=== PATIENT | female | born 1990 ===

== ENCOUNTER 2022-06-06 13:19 | Emergency (ER) | payer OTHER ==
[2022-06-06 13:29] VITALS: PULSE 55; RESP 20
[2022-06-06 14:22] LABS: Anisocytosis Slight; Basophils # (A) 0.1 k/uL (0-0.2); Basophils % (A) 1 %; Eosinophils # (A) 0.3 k/uL (0-0.7); Eosinophils % (A) 4 %; HCT 35.9 % (34.0-46.0); HGB 11.4 gm/dL (11.4-16.0); Lymphocytes # (A) 1.9 k/uL (1.0-4.8); Lymphocytes % (A) 21 %; MCH 19.4 pg (25.0-35.0); MCHC 31.7 g/dL (31.0-37.0); MCV 61.1 fL (80.0-100.0); Mean Platelet Volume 6.6; Microcytosis Marked; Monocytes # (A) 0.5 k/uL (0-1.0); Monocytes % (A) 5 %; Neutrophils # (A) 6.1 k/uL (1.3-7.7); Neutrophils % (A) 68 %; Platelet Count 205 k/uL (150-450); RBC 5.88 m/uL (3.80-5.40); RDW 16.7 % (11.5-15.5); WBC 8.9 k/uL (3.8-10.6)
[2022-06-06 14:49] LABS: African American GFR (CKD) >90 (>60 ml/min/1.73 sqM); Anion Gap 8 mmol/L; Blood Urea Nitrogen 13 mg/dL (7-17); Calcium 9.1 mg/dL (8.4-10.2); Carbon Dioxide 26 mmol/L (22-30); Chloride 102 mmol/L (98-107); Glucose 129 mg/dL (74-99); Non-African American GFR(CKD) >90 (>60 ml/min/1.73 sqM); Potassium 3.9 mmol/L (3.5-5.1); Sodium 136 mmol/L (137-145)
--- NOTE | 2022-06-06 14:55 | ED ---
General Adult HPI - General Chief complaint: Vaginal Bleeding Stated complaint: vaginal bleeding - 8 weeks Time Seen by Provider: 06/06/22 13:54 Source: patient, RN notes reviewed Mode of arrival: ambulatory Limitations: no limitations - History of Present Illness Initial comments: 31-year-old female presents emergency Department with chief complaint of vaginal bleeding early . 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 Patient states she's been having some brown spotting states that there was one clot today when she went to the bathroom. She states she has some lower abdominal cramping. She had a normal urinalysis yesterday. Patient is concerned that she may be miscarrying. Patient denies any flank pain no fevers or chills no other associated complaints. - Related Data Allergies Allergy/AdvReac Type Severity Reaction Status Date / Time No Known Allergies Allergy Verified 06/06/22 13:29 Review of Systems ROS Statement: Those systems with pertinent positive or pertinent negative responses have been documented in the HPI. ROS Other: All systems not noted in ROS Statement are negative. Past Medical History Additional Past Medical History / Comment(s): Anemia History of Any Multi-Drug Resistant Organisms: None Reported Additional Past Surgical History / Comment(s): Gastric sleeve 2017 Smoking Status: Vaper Past Alcohol Use History: None Reported Past Drug Use History: None Reported General Exam Limitations: no limitations General appearance: alert, in no apparent distress Head exam: Present: atraumatic, normocephalic, normal inspection Neck exam: Present: normal inspection. Absent: tenderness, meningismus, lymphadenopathy Respiratory exam: Present: normal lung sounds bilaterally. Absent: respiratory distress, wheezes, rales, rhonchi, stridor Cardiovascular Exam: Present: regular rate, normal rhythm, normal heart sounds. Absent: systolic murmur, diastolic murmur, rubs, gallop, clicks GI/Abdominal exam: Present: soft, tenderness, normal bowel sounds. Absent: distended, guarding, rebound, rigid Skin exam: Present: warm, dry, intact, normal color. Absent: rash Course Vital Signs 06/06/22 06/06/22 13:26 15:18 Temperature 97.9 F 97.8 F Pulse Rate 55 L Respiratory 20 Rate Blood Pressure 114/71 111/69 O2 Sat by Pulse 96 100 Oximetry Medical Decision Making - Medical Decision Making Was pt. sent in by a medical professional or institution (KELLY Phillip, LIBRARY CUSTOMER SERVICE CLERK, urgent care, hospital, or [facility]...) When possible be specific @ -No Did you speak to anyone other than the patient for history (EMS, parent, family, police, friend...)? What history was obtained from this source @ -No Did you review nursing and triage notes (agree or disagree)? Why? @ -I reviewed and agree with nursing and triage notes Were old charts reviewed (outside hosp., previous admission, EMS record, old EKG, old radiological studies, urgent care reports/EKG's, [facility] records)? Report findings @ -No old charts were reviewed Differential Diagnosis (chest pain, altered mental status, abdominal pain women, abdominal pain men, vaginal bleeding, weakness, fever, dyspnea, syncope, headache, dizziness, GI bleed, back pain, seizure, CVA, palpatations, mental health, musculoskeletal)? @ -Vaginal bleeding in , subchorionic hemorrhage, threatened miscarriage EKG interpreted by me (3pts min.). @ -None X-rays interpreted by me (1pt min.). @ -None done CT interpreted by me (1pt min.). @ -None done U/S interpreted by me (1pt. min.). @ -Ultrasound showed ovarian cyst, subchorionic hemorrhage, single viable IUP 7 weeks 1 day. What testing was considered but not performed or refused? (CT, X-rays, U/S, labs)? Why? @ -None What meds were considered but not given or refused? Why? @ -None Did you discuss the management of the patient with other professionals (professionals i.e. KELLY Phillip, LIBRARY CUSTOMER SERVICE CLERK, lab, RT, psych nurse, licensed master social worker, endodontic assistant, teacher, contracting officer, case managers)? Give summary @ -No Was smoking cessation discussed for >3mins.? @ -No Was critical care preformed (if so, how long)? @ -No Were there social determinants of health that impacted care today? How? (Homelessness, low income, unemployed, alcoholism, drug addiction, transportation, low edu. Level, literacy, decrease access to med. care, [facility], rehab)? @ -No Was there de-escalation of care discussed even if they declined (Discuss DNR or withdrawal of care, Hospice)? DNR status @ -No What co-morbidities impacted this encounter? (DM, HTN, Smoking, COPD, CAD, Cancer, CVA, ARF, Chemo, Hep., AIDS, mental health diagnosis, sleep apnea, morbid obesity)? @ -None Was patient admitted / discharged? Hospital course, mention meds given and route, prescriptions, significant lab abnormalities, going to OR and other pertinent info. @ -Discharged patient has subchorionic hemorrhaging most likely causing bleeding. She has a single viable IUP patient is O+ blood type will be discharged in stable condition. Undiagnosed new problem with uncertain prognosis? @ -No Drug Therapy requiring intensive monitoring for toxicity (Heparin, Nitro, Insulin, Cardizem)? @ -No Were any procedures done? @ -No Diagnosis/symptom? @ -Subchorionic hemorrhage and Acute, or Chronic, or Acute on Chronic? @ -Acute Uncomplicated (without systemic symptoms) or Complicated (systemic symptoms)? @ -uncomplicated Side effects of treatment? @ -No Exacerbation, Progression, or Severe Exacerbation? @ -No Poses a threat to life or bodily function? How? (Chest pain, USA, ID, pneumonia, PE, COPD, DKA, ARF, appy, cholecystitis, CVA, Diverticulitis, Homicidal, Suicidal, threat to staff... and all critical care pts) @ -No - Lab Data Result diagrams: 06/06/22 14:15 06/06/22 14:15 Lab Results 06/06/22 06/06/22 06/06/22 Range/Units 14:10 14:15 14:15 WBC 8.9 (3.8-10.6) k/uL RBC 5.88 H (3.80-5.40) m/uL Hgb 11.4 (11.4-16.0) gm/dL Hct 35.9 (34.0-46.0) % MCV 61.1 L (80.0-100.0) fL MCH 19.4 L (25.0-35.0) pg MCHC 31.7 (31.0-37.0) g/dL RDW 16.7 H (11.5-15.5) % Plt Count 205 (150-450) k/uL MPV 6.6 Neutrophils % 68 % Lymphocytes % 21 % Monocytes % 5 % Eosinophils % 4 % Basophils % 1 % Neutrophils # 6.1 (1.3-7.7) k/uL Lymphocytes # 1.9 (1.0-4.8) k/uL Monocytes # 0.5 (0-1.0) k/uL Eosinophils # 0.3 (0-0.7) k/uL Basophils # 0.1 (0-0.2) k/uL Manual Slide Review Performed Polychromasia Present Hypochromasia (manual) Present Anisocytosis Slight Microcytosis Marked Tear Drop Cells Present Fragmented RBCs Present Sodium 136 L (137-145) mmol/L Potassium 3.9 (3.5-5.1) mmol/L Chloride 102 (98-107) mmol/L Carbon Dioxide 26 (22-30) mmol/L Anion Gap 8 mmol/L BUN 13 (7-17) mg/dL Creatinine 0.68 (0.52-1.04) mg/dL Est GFR (CKD-EPI)AfAm >90 (>60 ml/min/1.73 sqM) Est GFR (CKD-EPI)NonAf >90 (>60 ml/min/1.73 sqM) Glucose 129 H (74-99) mg/dL Calcium 9.1 (8.4-10.2) mg/dL Blood Type O Positive Blood Type Recheck No Previous Record Bld Type Recheck Status [facility] ONLY Disposition Clinical Impression: Subchorionic hemorrhage in first trimester Disposition: HOME SELF-CARE Condition: Stable Instructions (If sedation given, give patient instructions): Subchorionic Hemorrhage (ED) Additional Instructions: Please return to the Emergency Department if symptoms worsen or any other concerns. Is patient prescribed a controlled substance at d/c from ED?: No Referrals: Nonstaff,Physician [Primary Care Provider] - 1-2 days Time of Disposition: 15:37
[2022-06-06 15:15] LABS: Hypochromasia (M) Present; Polychromasia Present; RBC Fragments Present; Tear Drop Cells Present
[2022-06-06 15:23] VITALS: TEMP 97.8
--- NOTE | 2022-06-06 15:43 | US ---
EXAMINATION TYPE: Transabdominal DATE OF EXAM: 06/06/2022 3:11 PM COMPARISON: NONE CLINICAL INDICATION: Female, 31 years old with history of bleeding; Patient states spotting today. EXAM PERFORMED: Transvaginal (TV) and Transabdominal (TA) EXAM MEASUREMENTS: GESTATIONAL AGE / DATING Physician Established: Not yet established Dates by LMP: ( 8 weeks/5 days) EDC: 01/11/2023 Dates by First Scan: No previous this is first scan Dates by Current Scan for: ( 7 weeks/1 days) EDC: 01/22/2023 MATERNAL ANATOMY Uterus: 11.8 x 7.9 x 6.0 cm Right Ovary: 3.8 x 1.7 x 2.1 cm Left Ovary: 3.9 x 2.7 x 1.5 cm Post CDS / Adnexa: free fluid in cul de sac and adjacent to right ovary Presence of corpus luteal cyst: Left ovary= 2.2 x 2.1 x 1.8 cm Presence of subchorionic bleed: left uterus- 2.0 x 1.7 x 1.2 cm GESTATION / SURVEY CRL: 1.0 cm ( 7 weeks/1 days) MSD: seen higher up in the fundus, not measured Yolk Sac (normal less than 6mm): 2.6 mm Heart Rate: 135 bpm Rhythm: Normal IUP: Viable IUP Date of LMP: 04/06/2022 Beta HcG (if available): Not available at this time GS, YS and CRL visualized at time of scan. Fluid seen in cervical canal. Right ovary cyst = 1.3 x 1. 1 x 0.8 cm IMPRESSION: 1. Single live intrauterine gestation with estimated gestational age of 7 weeks 1 day and estimated s mall subchorionic due date of 01/22/2023. 2. Small subchorionic bleed. Close clinical surveillance is recommended. 3. Small amount of simple fluid in the pelvic cul-de-sac and right adnexa, and cervical canal.
[2022-06-06 16:03] VITALS: BP 116/62
[2022-06-06 16:13] LABS: HCG,Quantitative Serum 86658.2 mIU/mL
== END 2022-06-06 16:15 | disposition home or self-care (01) ==
LOC: EC 13:19
DX: O20.8 Other hemorrhage in early pregnancy (principal); O99.331 Smoking (tobacco) complicating pregnancy, first trimester; F17.290 Nicotine dependence, other tobacco product, uncomplicated; Z3A.08 8 weeks gestation of pregnancy
CPT/HCPCS: 36415; 76801; 76817; 80048; 84702; 85025; 86900; 86901; 99284